=== PATIENT | female | born 1965 | race Two or more races ===

== ENCOUNTER 2022-01-22 20:23 | Emergency (ER) | payer SELFPAY ==
[~2022-01-22] VITALS: Ht 167.6 cm; Wt 64.0 kg
[2022-01-22 20:41] VITALS: BP 142/91
== END 2022-01-22 21:40 | disposition left against medical advice (07) ==
LOC: ER 20:23
DX: R51.9 Headache, unspecified (principal); M54.2 Cervicalgia; V43.52XA Car driver injured in collision with other type car in traffic accident, initial encounter; Y93.89 Activity, other specified; Y92.488 Other paved roadways as the place of occurrence of the external cause
CPT/HCPCS: 99283